=== PATIENT | male | born 2000 | race Caucasian/White ===

== ENCOUNTER 2019-01-14 02:49 | Emergency (ER) | payer MEDICAID ==
[~2019-01-14] VITALS: Ht 162.6 cm; Wt 67.6 kg
--- NOTE | 2019-01-14 02:49 | NUR ---
PT BIB BY AMBULANCE, MOVED TO ER BED 4
[2019-01-14 02:58] VITALS: BP 107/49
--- NOTE | 2019-01-14 03:03 | NUR ---
DR. MALONE EVALUATING PT BEDSIDE
[2019-01-14] MEDS ORDERED: NACL 0.9% 1,000 ML IV ONE ×2 (03:15→05:30)
[2019-01-14] MEDS ORDERED: BACITRACIN OINT 500 UNITS/GM PKT TP ONE (03:25)
--- NOTE | 2019-01-14 04:00 | NUR ---
WOUND ARE CLEANED APPLIED BACITRACIN OINTMENT , PATIENT TOLERATED WELL.
--- NOTE | 2019-01-14 04:35 | NUR ---
Patient appears to be resting comfortably in bed. Vital Signs within normal limits. Respirations even and unlabored.
--- NOTE | 2019-01-14 05:00 | NUR ---
PATIENT ASLEEP WITH BP 89/45, NOTED BY ERMD, WITH ORDER AND CARRIED OUT.
[2019-01-14 06:49] VITALS: BP 106/56
--- NOTE | 2019-01-14 06:50 | NUR ---
Patient discharged with v/s stable. Written and verbal after care instructions given and explained. Patient verbalized understanding. Ambulatory with steady gait. All questions addressed prior to discharge. Advised to follow up with PMD.
--- NOTE | 2019-01-16 13:40 | NUR ---
Late entry. 1000 ml 0.9NS IV bolus #2 completed at 0630.
== END 2019-01-14 06:51 | disposition home or self-care (01) ==
LOC: MED 02:49
DX: S00.31XA Abrasion of nose, initial encounter (principal); S00.212A Abrasion of left eyelid and periocular area, initial encounter; S00.81XA Abrasion of other part of head, initial encounter; F10.129 Alcohol abuse with intoxication, unspecified; X58.XXXA Exposure to other specified factors, initial encounter; Y93.89 Activity, other specified; Y92.89 Other specified places as the place of occurrence of the external cause; Y99.8 Other external cause status; Y90.9 Presence of alcohol in blood, level not specified
CPT/HCPCS: 99283; J7030

== ENCOUNTER 2019-07-10 17:16 | Emergency (ER) | payer MEDICAID ==
[~2019-07-10] VITALS: Ht 162.6 cm; Wt 73.9 kg
--- NOTE | 2019-07-10 17:36 | NUR ---
19 Y/O M PRESENTS TO ER C/O LEFT THUMB LACERATION. PER PT HE WAS CUTTING CHICKEN LAST NIGHT AND SLICED HIS LEFT FIRST DIGIT. BLEEDING CONTROLLED. PT TOOK ALEVE AROUND NOON WITH RELIEF. CURRENT PAIN LEVEL 9/10, CONSTNAT, PUSLATING FEELING. NKA. NO MED HX. SAFETY MEASURES IN PLACE.
[2019-07-10] MEDS ORDERED: LIDOCAINE/EPI 1% 1:100000 20 ML VIAL INJ ONE (18:20)
[2019-07-10 19:23] VITALS: BP 137/86
--- NOTE | 2019-07-10 19:23 | NUR ---
DISCHARGE PAPERS GIVEN TO PT. RX OF IBUPROFEN GIVEN. SIDE EFFECTS EXPLAINED. INSTRUCTED TO F/U WITH PCP AND WHEN TO RETURN TO ER. PT VERBALLIZED UNDERSTANDING OF DC INSTRUCTIONS. ALL QUESTIONS ANSWERED.
== END 2019-07-10 19:23 | disposition home or self-care (01) ==
LOC: MED 17:16
DX: S61.102A Unspecified open wound of left thumb with damage to nail, initial encounter (principal); W45.8XXA Other foreign body or object entering through skin, initial encounter; Y93.89 Activity, other specified; Y92.89 Other specified places as the place of occurrence of the external cause; Y99.8 Other external cause status
CPT/HCPCS: 12001; 90471; 90715; 99283; J2001